=== PATIENT | female | born 1980 | race Caucasian/White ===

== ENCOUNTER 2016-08-26 16:02 | Emergency (ER) | payer OTHER, BC ==
--- NOTE | 2016-08-26 17:05 | ED CLINICAL REPORT ---
Clinical Report - Physicians/Mid Levels [facility] [address] [place] [address] 08/26/2016 16:03 Patient: JS DAHL Time Seen: 16:20; initial patient contact. Arrived- By private vehicle. Historian- patient. HISTORY OF PRESENT ILLNESS Chief Complaint: VAGINAL DISCHARGE. (( Pt was diagnosed with a yeast infection 4 days ago. She was treated with an antifungal, but states she is in pain.)). Still present and worsening. The symptoms are described as severe. The patient has had vaginal pain. She has had a single painful genital lesion (1 days). She has had pain with urination. No urinary frequency, urgency of urination or hematuria. Sexually active. control measures utilized. Similar symptoms previously: None. Recent medical care: The patient was seen recently at another facility in a clinic. REVIEW OF SYSTEMS No nausea or vomiting. All systems otherwise negative, except as recorded above. PAST HISTORY See nurses notes. Problems: Hemorrhoids. Dental Pain. Medications: Ibuprofen Oral. Allergies: No Known Drug Allergy. SOCIAL HISTORY No alcohol use or drug use. FAMILY HISTORY Negative. ADDITIONAL NOTES The nursing notes have been reviewed with agreement regarding the chief complaint, HPI, ROS, PMH and patient medications and allergies. PHYSICAL EXAM Vital Signs: 08/26/2016 16:23 BP: 120/80. HR: 94. RR: 18. O2 saturation: 98%. Temp: 98.6 F. Pain level now: 7/10. Have been reviewed. Appearance: Alert. Oriented X3. No acute distress. Abdomen: Soft and nontender. Bowel sounds normal. : A few severely tender herpes-like lesions (ulcerations, with an erythematous base) present in the periurethral area. PROGRESS AND PROCEDURES Course of Care: Patient is stable. CLINICAL IMPRESSION Acute moderate herpes vulvovaginitis. Herpes genitalis involving the vulva. INSTRUCTIONS Rest. Do not work for three days until better. No sexual contact until symptoms resolve. Warnings: Further evaluation is necessary in order to obtain test results. It is very important to follow up with a physician. GENERAL WARNINGS: Return or contact your physician immediately if your condition worsens or changes unexpectedly, if not improving as expected, or if other problems arise. Prescription Medications: Hydrocodone/APAP 5mg / 325mg: take 1 orally every 8 hours as needed for pain. Dispense ten (10). No refill. Valtrex 1000 mg: every 8 hours for 7 days. No refills. Substitution is permissible. Follow-up: Go to your doctor for results of cultures. If unable to obtain follow-up, call the emergency department. Understanding of the discharge instructions verbalized by patient. (Electronically signed by Ambreen Engel PA-C 08/27/2016 0:11)
--- NOTE | 2016-08-26 17:05 | ED NURSING NOTES ---
Clinical Report - Nurses [facility] [place] [address] 08/26/2016 16:03 Patient: JS DAHL TRIAGE Acuity: LEVEL 4. Chief Complaint: VAGINAL PAIN. Alert. No acute distress. --16:27 Rahda Ramos R.N. 16:23 08/26/16. BP: 120/80. HR: 94. RR: 18. O2 saturation: 98% on room air. Temp: 98.6 F (oral). Pain level now: 01/07. --16:27 Radha Ramos R.N. Weight: 77.1 kg stated. Height/Length: 66 inches Per Patient. BMI: 27.4. --16:27 Radha Ramos R.N. Medications Ibuprofen Oral. --16:25 Radha Ramos R.N. Medication/allergy information source: the patient. --16:27 Radha Ramos R.N. Allergies No Known Drug Allergy. --16:25 Radha Ramos R.N. History Arrived by private vehicle. Historian: patient. Unaccompanied. Onset. (4 days ago). ( Pt was diagnosed with a yeast infection 4 days ago. She was treated with an antifungal, but states she is in pain.). 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 PAST MEDICAL HX: Last normal menstrual period- does not have periods. Uses an intrauterine device. SOCIAL HX: Current some days light tobacco smoker. No alcohol use or drug use. FALL RISK ASSESSMENT: Fall risk assessment completed. No fall risk identified. NUTRITIONAL RISK ASSESSMENT: The nutritional risk assessment revealed no deficiencies. FUNCTIONAL ASSESSMENT: Functional assessment: no impairments noted. LEARNING NEEDS ASSESSMENT: The learning needs assessment revealed no barriers. SKIN INTEGRITY ASSESSMENT: Skin integrity risk assessment completed. No skin integrity risk identified. --16:27 Radha Ramos R.N. Interventions ID band on patient. To treatment room. --16:27 Radha Ramos R.N. PHYSICAL ASSESSMENT 16:28 08/26/16. Ambulatory to room. GENERAL / NEURO / PSYCH: Alert. Oriented X 4. Appears in no acute distress. HEENT: Mucous membranes are pink. RESPIRATORY: Respirations not labored. CVS: Capillary refill less than 2 seconds. GI / : Abdomen soft and nontender. SKIN: Skin is warm and dry. --16:28 Radha Ramos R.N. NURSING PROGRESS NOTES 16:28 08/26/16. Patient gowned. Reassurance given. Two patient identifiers checked. Call light placed in reach. Side rails up x 1. Bed placed in lowest position. Brakes of bed on. Patient ready for evaluation- chart flagged and PA notified. --16:28 Radha Ramos R.N. 16:59 08/26/16. Checked patient name and birthdate: patient confirmed. Instructions provided to collect clean catch urine and patient verbalized understanding. Clean catch urine collected with return of yellow-colored clear urine; sample sent to lab for urinalysis. Specimen labeled in the presence of the patient. --16:59 Radha Ramos R.N. DISPOSITION / DISCHARGE 17:25 08/26/16. Departure time: 1724. Condition at departure: improved and stable. No learning barriers present. Discharge instructions provided and reviewed with the patient. Reviewed medication(s) side effects, precautions, dosing and course information. Prescription(s) given to the patient. Work note given. Patient verbalized understanding. Written instructions provided in Ivorian. The patient was discharged by the physician travel assistant. She was discharged home. She left the Emergency Department ambulatory and via private vehicle. Patient driving. --17:26 Kandi Mccray R.N. Locked/Released at 08/27/2016 13:16 by Kandi Mccray R.N.
--- NOTE | 2016-08-26 17:05 | ED ORDER SUMMARY ---
..... Patient: JS DAHL OrderSheet [facility] VisitID: [id number] [address] [place] [address] 35y, F Registration Date/Time: 08/26/2016 ORDER SHEET Weight: 77.1 kg (stated) Allergies: No Known Drug Allergy GENERAL ORDERS: UA-Culture if indicated Urgent (16:33 08/26/2016 Huey FONTANA) (Ack 16:34 LTapper) (16:58 MWinterer R.N.) Culture, Genital (Urethra) Urgent (17:05 08/26/2016 Huey FONTANA) (17:10 KWilliams R.N.) Culture, Herpes (Urethra) (herpes left of urethra) Urgent (17:06 08/26/2016 Huey FONTANA) (17:10 KWilliams R.N.) MEDICATION ORDERS: IV FLUIDS: ORDER SHEET NOTES: [Electronically signed by Ambreen Engel PA-C (00:11 08/27/2016)] [Electronically signed by Kandi Mccray R.N. (13:16 08/27/2016)] [Electronically locked/signed by Kandi Mccray R.N. (13:16 08/27/2016)]
--- NOTE | 2016-08-26 17:05 | ED ORDER SUMMARY ---
..... Patient: JS DAHL OrderSheet [facility] VisitID: [id number] [address] [place] [address] 35y, F Registration Date/Time: 08/26/2016 ORDER SHEET Weight: 77.1 kg (stated) Allergies: No Known Drug Allergy GENERAL ORDERS: UA-Culture if indicated Urgent (16:33 08/26/2016 Huye FONTANA) (Ack 16:34 LTapper) (16:58 MWinterer R.N.) Culture, Genital (Urethra) Urgent (17:05 08/26/2016 Huey FONTANA) (17:10 KWilliams R.N.) Culture, Herpes (Urethra) (herpes left of urethra) Urgent (17:06 08/26/2016 Huey FONTANA) (17:10 KWilliams R.N.) MEDICATION ORDERS: IV FLUIDS: ORDER SHEET NOTES: [Electronically signed by Ambreen Engel PA-C (00:11 08/27/2016)] [Electronically signed by Kandi Mccray R.N. (13:16 08/27/2016)] [Electronically locked/signed by Kandi Mccray R.N. (13:16 08/27/2016)]
--- NOTE | 2016-08-26 17:05 | ED NURSING NOTES ---
Clinical Report - Nurses [facility] [place] [address] 08/26/2016 16:03 Patient: JS DAHL TRIAGE Acuity: LEVEL 4. Chief Complaint: VAGINAL PAIN. Alert. No acute distress. --16:27 Radha Ramos R.N. 16:23 08/26/16. BP: 120/80. HR: 94. RR: 18. O2 saturation: 98% on room air. Temp: 98.6 F (oral). Pain level now: 01/07. --16:27 Radha Ramos R.N. Weight: 77.1 kg stated. Height/Length: 66 inches Per Patient. BMI: 27.4. --16:27 Radha Ramos R.N. Medications Ibuprofen Oral. --16:25 Radha Ramos R.N. Medication/allergy information source: the patient. --16:27 Radha Ramos R.N. Allergies No Known Drug Allergy. --16:25 Radha Ramos R.N. History Arrived by private vehicle. Historian: patient. Unaccompanied. Onset. (4 days ago). ( Pt was diagnosed with a yeast infection 4 days ago. She was treated with an antifungal, but states she is in pain.). 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 PAST MEDICAL HX: Last normal menstrual period- does not have periods. Uses an intrauterine device. SOCIAL HX: Current some days light tobacco smoker. No alcohol use or drug use. FALL RISK ASSESSMENT: Fall risk assessment completed. No fall risk identified. NUTRITIONAL RISK ASSESSMENT: The nutritional risk assessment revealed no deficiencies. FUNCTIONAL ASSESSMENT: Functional assessment: no impairments noted. LEARNING NEEDS ASSESSMENT: The learning needs assessment revealed no barriers. SKIN INTEGRITY ASSESSMENT: Skin integrity risk assessment completed. No skin integrity risk identified. --16:27 Radha Ramos R.N. Interventions ID band on patient. To treatment room. --16:27 Radha Ramos R.N. PHYSICAL ASSESSMENT 16:28 08/26/16. Ambulatory to room. GENERAL / NEURO / PSYCH: Alert. Oriented X 4. Appears in no acute distress. HEENT: Mucous membranes are pink. RESPIRATORY: Respirations not labored. CVS: Capillary refill less than 2 seconds. GI / : Abdomen soft and nontender. SKIN: Skin is warm and dry. --16:28 Radha Ramos R.N. NURSING PROGRESS NOTES 16:28 08/26/16. Patient gowned. Reassurance given. Two patient identifiers checked. Call light placed in reach. Side rails up x 1. Bed placed in lowest position. Brakes of bed on. Patient ready for evaluation- chart flagged and PA notified. --16:28 Radha Ramos R.N. 16:59 08/26/16. Checked patient name and birthdate: patient confirmed. Instructions provided to collect clean catch urine and patient verbalized understanding. Clean catch urine collected with return of yellow-colored clear urine; sample sent to lab for urinalysis. Specimen labeled in the presence of the patient. --16:59 Radha Ramos R.N. DISPOSITION / DISCHARGE 17:25 08/26/16. Departure time: 1724. Condition at departure: improved and stable. No learning barriers present. Discharge instructions provided and reviewed with the patient. Reviewed medication(s) side effects, precautions, dosing and course information. Prescription(s) given to the patient. Work note given. Patient verbalized understanding. Written instructions provided in Czech. The patient was discharged by the physician assistant food service manager. She was discharged home. She left the Emergency Department ambulatory and via private vehicle. Patient driving. --17:26 Kandi Mccray R.N. Locked/Released at 08/27/2016 13:16 by Kandi Mccray R.N.
--- NOTE | 2016-08-26 17:05 | ED CLINICAL REPORT ---
Clinical Report - Physicians/Mid Levels [facility] [address] [place] [address] 08/26/2016 16:03 Patient: JS DAHL Time Seen: 16:20; initial patient contact. Arrived- By private vehicle. Historian- patient. HISTORY OF PRESENT ILLNESS Chief Complaint: VAGINAL DISCHARGE. (( Pt was diagnosed with a yeast infection 4 days ago. She was treated with an antifungal, but states she is in pain.)). Still present and worsening. The symptoms are described as severe. The patient has had vaginal pain. She has had a single painful genital lesion (1 days). She has had pain with urination. No urinary frequency, urgency of urination or hematuria. Sexually active. control measures utilized. Similar symptoms previously: None. Recent medical care: The patient was seen recently at another facility in a clinic. REVIEW OF SYSTEMS No nausea or vomiting. All systems otherwise negative, except as recorded above. PAST HISTORY See nurses notes. Problems: Hemorrhoids. Dental Pain. Medications: Ibuprofen Oral. Allergies: No Known Drug Allergy. SOCIAL HISTORY No alcohol use or drug use. FAMILY HISTORY Negative. ADDITIONAL NOTES The nursing notes have been reviewed with agreement regarding the chief complaint, HPI, ROS, PMH and patient medications and allergies. PHYSICAL EXAM Vital Signs: 08/26/2016 16:23 BP: 120/80. HR: 94. RR: 18. O2 saturation: 98%. Temp: 98.6 F. Pain level now: 7/10. Have been reviewed. Appearance: Alert. Oriented X3. No acute distress. Abdomen: Soft and nontender. Bowel sounds normal. : A few severely tender herpes-like lesions (ulcerations, with an erythematous base) present in the periurethral area. PROGRESS AND PROCEDURES Course of Care: Patient is stable. CLINICAL IMPRESSION Acute moderate herpes vulvovaginitis. Herpes genitalis involving the vulva. INSTRUCTIONS Rest. Do not work for three days until better. No sexual contact until symptoms resolve. Warnings: Further evaluation is necessary in order to obtain test results. It is very important to follow up with a physician. GENERAL WARNINGS: Return or contact your physician immediately if your condition worsens or changes unexpectedly, if not improving as expected, or if other problems arise. Prescription Medications: Hydrocodone/APAP 5mg / 325mg: take 1 orally every 8 hours as needed for pain. Dispense ten (10). No refill. Valtrex 1000 mg: every 8 hours for 7 days. No refills. Substitution is permissible. Follow-up: Go to your doctor for results of cultures. If unable to obtain follow-up, call the emergency department. Understanding of the discharge instructions verbalized by patient. (Electronically signed by Ambreen Engel PA-C 08/27/2016 0:11)
--- NOTE | 2016-08-27 13:16 | ED MED RECONCILIATION SUMMARY ---
Patient: JS DAHL Medication Reconciliation Report [facility] VisitID: [id number] [address] [place] [address] 35y, F Registration Date/Time: 08/26/2016 Weight: 77.1 kg Height/Length: 66 in. BMI: 27.4 ALLERGIES: No Known Drug Allergy The patient's Home Medications are listed below: THE FOLLOWING MEDICATIONS NEED TO BE RECONCILED: Ibuprofen Oral The source(s) of the original Home Medication information: patient The following Medications were given to the patient in the Emergency Department: None. The following Medications were prescribed to the patient: Hydrocodone/APAP 5mg / 325mg: take 1 orally every 8 hours as needed for pain. Dispense ten (10). No refill. -- Ambreen Engel PA-C Valtrex 1000 mg: every 8 hours for 7 days. No refills. Substitution is permissible. -- Ambreen Engel PA-C
--- NOTE | 2016-08-27 13:16 | ED MAR SUMMARY ---
..... Medication Administration Record [facility] [address] [place], [place] [id number] Patient: JS DAHL Visit ID: [id number] 35y, F Weight: 77.1 kg Height/Length: 66 in BMI: 27.4 ALLERGIES: No Known Drug Allergy
--- NOTE | 2016-08-27 13:16 | ED MAR SUMMARY ---
..... Medication Administration Record [facility] [address] [place], [place] [id number] Patient: JS DAHL Visit ID: [id number] 35y, F Weight: 77.1 kg Height/Length: 66 in BMI: 27.4 ALLERGIES: No Known Drug Allergy
--- NOTE | 2016-08-27 13:16 | ED MED RECONCILIATION SUMMARY ---
Patient: JS DAHL Medication Reconciliation Report [facility] VisitID: [id number] [address] [place] [address] 35y, F Registration Date/Time: 08/26/2016 Weight: 77.1 kg Height/Length: 66 in. BMI: 27.4 ALLERGIES: No Known Drug Allergy The patient's Home Medications are listed below: THE FOLLOWING MEDICATIONS NEED TO BE RECONCILED: Ibuprofen Oral The source(s) of the original Home Medication information: patient The following Medications were given to the patient in the Emergency Department: None. The following Medications were prescribed to the patient: Hydrocodone/APAP 5mg / 325mg: take 1 orally every 8 hours as needed for pain. Dispense ten (10). No refill. -- Ambreen Engel PA-C Valtrex 1000 mg: every 8 hours for 7 days. No refills. Substitution is permissible. -- Ambreen Engel PA-C
--- NOTE | 2016-08-27 13:16 | ED DISCHARGE INSTRUCTIONS ---
Patient: JS DAHL General Instructions [facility] VisitID: [id number] [place] [address] 35y, F Registration Date/Time: 08/26/2016 Acute moderate herpes vulvovaginitis. Herpes genitalis involving the vulva. INSTRUCTIONS Rest. Do not work for three days until better. No sexual contact until symptoms resolve. Warnings: Further evaluation is necessary in order to obtain test results. It is very important to follow up with a physician. GENERAL WARNINGS: Return or contact your physician immediately if your condition worsens or changes unexpectedly, if not improving as expected, or if other problems arise. Prescription Medications: Hydrocodone/APAP 5mg / 325mg: take 1 orally every 8 hours as needed for pain. Dispense ten (10). No refill. Valtrex 1000 mg: every 8 hours for 7 days. No refills. Substitution is permissible. Follow-up: Go to your doctor for results of cultures. If unable to obtain follow-up, call the emergency department. Understanding of the discharge instructions verbalized by patient. ADDITIONAL INFORMATION Genital Herpes Genital herpes is a common sexually transmitted disease (STD). It is caused by the Herpes Simplex virus. One out of five (20%) teens and adults carry the herpes virus. During an outbreak, it causes small blisters that break open, leaving small painful ulcers (sores) in the genital area. Eventually, scabs form and the ulcers heal. In women, these are most often on the skin just outside the vaginal opening. They can occur on the buttocks, anus or cervix. In men, the sores are usually on the tip, sides or base of the penis. They also occur on the scrotum, buttocks or thighs. The first episode begins within 2-3 weeks after exposure to an infected sexual partner. It may last 1-3 weeks and cause headache, muscle ache and fevers. The first outbreak is usually the worst. Because the virus remains in the body even after the sores heal, most persons will have recurrences. The frequency of recurrent outbreaks varies with each person. Some people will never have another outbreak. Others will have several episodes a year. Later outbreaks are usually shorter, milder and less painful. For many, the number of outbreaks tends to decrease over time. Various factors may trigger a recurrence. These include: Emotional stress Menstruation Presence of another illness (cold, flu, or fever from any cause) Overexertion and fatigue Weakened immune system Home Care: It is very important that you do not have sexual relations until ALL the herpes sores have healed completely. Wash the affected area gently with mild soap and water. Wash your hands after touching the affected area. You may use acetaminophen (Tylenol) or ibuprofen (Motrin, Advil) to control pain, unless another pain medicine was prescribed. [NOTE: If you have chronic liver or kidney disease or ever had a stomach ulcer or GI bleeding, talk with your doctor before using these medicines.] Your doctor may prescribe anti-viral medicine during the first outbreak. This will help the sores heal faster. Antiviral medicine may also be prescribed to have at home to take at the first sign of a recurrence. This will shorten the symptoms of a recurrence. For persons with frequent outbreaks, daily therapy may be prescribed. This will reduce the frequency of attacks. Daily therapy may also reduce risk of spread of herpes to your sexual partner. Discuss the risks and benefits of daily therapy with your doctor. If you are a woman who is now or become in the future, let your doctor know that you have had herpes since this may affect the method of delivery. Preventing Spread To Others: The virus is spread by sexual contact with someone who has the herpes virus. The risk of spread is highest when the sores are present. However, there is a chance of spreading the virus even when sores are not visible . Inform future sexual partners that you have herpes and that he/she may become infected. To reduce the risk of passing the virus to a partner who has never had herpes, avoid sexual relations at the first sign of an outbreak and until the ulcers are fully healed. Latex condoms reduce the risk of spread between outbreaks if the infected site is covered, but they do not guarantee protection. Follow-Up: Persons who have just learned that they have herpes may feel guilt, anger, and be emotionally upset. Getting the facts helps put you back in control. Follow up with your doctor or the Public Health Dept for complete STD screening, including HIV testing. For more information about Herpes, see the "National Herpes Resource Center" http://www.ashastd.org/herpes/herpes_overview.cfm ; or call the National STD Hotline: 276.986.1185. Get Prompt Medical Attention if any of the following occur: Inability to urinate due to pain Swelling or increasing redness in the genital area Unusual drowsiness, weakness or confusion Headache, stiff neck Discharge from the vagina or penis Increasing back or abdominal pain Rash or joint pain Valacyclovir Hydrochloride Oral tablet What is this medicine? VALACYCLOVIR (keyona ay PTA foster veer) is an antiviral medicine. It is used to treat or prevent infections caused by certain kinds of viruses. Examples of these infections include herpes and shingles. This medicine will not cure herpes. How should I use this medicine? Take this medicine by mouth with a glass of water. Follow the directions on the prescription label. You can take this medicine with or without food. Take your doses at regular intervals. Do not take your medicine more often than directed. Finish the full course prescribed by your doctor or health foster care worker even if you think your condition is better. Do not stop taking except on the advice of your doctor or health foster care worker. Talk to your record center specialist regarding the use of this medicine in children. While this drug may be prescribed for children as young as 2 years for selected conditions, precautions do apply. What side effects may I notice from receiving this medicine? Side effects that you should report to your doctor or health foster care worker as soon as possible: allergic reactions like skin rash, itching or hives, swelling of the face, lips, or tongue aggressive behavior confusion hallucinations problems with balance, talking, walking stomach pain tremor trouble passing urine or change in the amount of urine Side effects that usually do not require medical attention (report to your doctor or health foster care worker if they continue or are bothersome): dizziness headache nausea, vomiting What may interact with this medicine? cimetidine probenecid What if I miss a dose? If you miss a dose, take it as soon as you can. If it is almost time for your next dose, take only that dose. Do not take double or extra doses. Where should I keep my medicine? Keep out of the reach of children. Store at room temperature between 15 and 25 degrees C (59 and 77 degrees F). Keep container tightly closed. Throw away any unused medicine after the expiration date. What should I tell my health care provider before I take this medicine? They need to know if you have any of these conditions: acquired immunodeficiency syndrome (AIDS) any other condition that may weaken the immune system bone marrow or kidney transplant kidney disease an unusual or allergic reaction to valacyclovir, acyclovir, ganciclovir, valganciclovir, other medicines, foods, dyes, or preservatives or trying to get breast-feeding What should I watch for while using this medicine? Tell your doctor or health foster care worker if your symptoms do not start to get better after 1 week. This medicine works best when taken early in the course of an infection, within the first 72 hours. Begin treatment as soon as possible after the first signs of infection like tingling, itching, or pain in the affected area. It is possible that genital herpes may still be spread even when you are not having symptoms. Always use safer sex practices like condoms made of latex or polyurethane whenever you have sexual contact. You should stay well hydrated while taking this medicine. Drink plenty of fluids. You have been given the following additional information: Herpes Genitalis, Hsv: Type Ii Valacyclovir Hydrochloride Oral tablet Rest. Do not work for three days until better. (Electronically signed by Ambreen Engel PA-C 08/27/2016 0:11)
--- NOTE | 2016-08-27 13:16 | ED DISCHARGE INSTRUCTIONS ---
Patient: JS DAHL General Instructions [facility] VisitID: [id number] [place] [address] 35y, F Registration Date/Time: 08/26/2016 Acute moderate herpes vulvovaginitis. Herpes genitalis involving the vulva. INSTRUCTIONS Rest. Do not work for three days until better. No sexual contact until symptoms resolve. Warnings: Further evaluation is necessary in order to obtain test results. It is very important to follow up with a physician. GENERAL WARNINGS: Return or contact your physician immediately if your condition worsens or changes unexpectedly, if not improving as expected, or if other problems arise. Prescription Medications: Hydrocodone/APAP 5mg / 325mg: take 1 orally every 8 hours as needed for pain. Dispense ten (10). No refill. Valtrex 1000 mg: every 8 hours for 7 days. No refills. Substitution is permissible. Follow-up: Go to your doctor for results of cultures. If unable to obtain follow-up, call the emergency department. Understanding of the discharge instructions verbalized by patient. ADDITIONAL INFORMATION Genital Herpes Genital herpes is a common sexually transmitted disease (STD). It is caused by the Herpes Simplex virus. One out of five (20%) teens and adults carry the herpes virus. During an outbreak, it causes small blisters that break open, leaving small painful ulcers (sores) in the genital area. Eventually, scabs form and the ulcers heal. In women, these are most often on the skin just outside the vaginal opening. They can occur on the buttocks, anus or cervix. In men, the sores are usually on the tip, sides or base of the penis. They also occur on the scrotum, buttocks or thighs. The first episode begins within 2-3 weeks after exposure to an infected sexual partner. It may last 1-3 weeks and cause headache, muscle ache and fevers. The first outbreak is usually the worst. Because the virus remains in the body even after the sores heal, most persons will have recurrences. The frequency of recurrent outbreaks varies with each person. Some people will never have another outbreak. Others will have several episodes a year. Later outbreaks are usually shorter, milder and less painful. For many, the number of outbreaks tends to decrease over time. Various factors may trigger a recurrence. These include: Emotional stress Menstruation Presence of another illness (cold, flu, or fever from any cause) Overexertion and fatigue Weakened immune system Home Care: It is very important that you do not have sexual relations until ALL the herpes sores have healed completely. Wash the affected area gently with mild soap and water. Wash your hands after touching the affected area. You may use acetaminophen (Tylenol) or ibuprofen (Motrin, Advil) to control pain, unless another pain medicine was prescribed. [NOTE: If you have chronic liver or kidney disease or ever had a stomach ulcer or GI bleeding, talk with your doctor before using these medicines.] Your doctor may prescribe anti-viral medicine during the first outbreak. This will help the sores heal faster. Antiviral medicine may also be prescribed to have at home to take at the first sign of a recurrence. This will shorten the symptoms of a recurrence. For persons with frequent outbreaks, daily therapy may be prescribed. This will reduce the frequency of attacks. Daily therapy may also reduce risk of spread of herpes to your sexual partner. Discuss the risks and benefits of daily therapy with your doctor. If you are a woman who is now or become in the future, let your doctor know that you have had herpes since this may affect the method of delivery. Preventing Spread To Others: The virus is spread by sexual contact with someone who has the herpes virus. The risk of spread is highest when the sores are present. However, there is a chance of spreading the virus even when sores are not visible . Inform future sexual partners that you have herpes and that he/she may become infected. To reduce the risk of passing the virus to a partner who has never had herpes, avoid sexual relations at the first sign of an outbreak and until the ulcers are fully healed. Latex condoms reduce the risk of spread between outbreaks if the infected site is covered, but they do not guarantee protection. Follow-Up: Persons who have just learned that they have herpes may feel guilt, anger, and be emotionally upset. Getting the facts helps put you back in control. Follow up with your doctor or the Public Health Dept for complete STD screening, including HIV testing. For more information about Herpes, see the "National Herpes Resource Center" http://www.ashastd.org/herpes/herpes_overview.cfm ; or call the National STD Hotline: 935.704.3686. Get Prompt Medical Attention if any of the following occur: Inability to urinate due to pain Swelling or increasing redness in the genital area Unusual drowsiness, weakness or confusion Headache, stiff neck Discharge from the vagina or penis Increasing back or abdominal pain Rash or joint pain Valacyclovir Hydrochloride Oral tablet What is this medicine? VALACYCLOVIR (keyona ay PAT foster veer) is an antiviral medicine. It is used to treat or prevent infections caused by certain kinds of viruses. Examples of these infections include herpes and shingles. This medicine will not cure herpes. How should I use this medicine? Take this medicine by mouth with a glass of water. Follow the directions on the prescription label. You can take this medicine with or without food. Take your doses at regular intervals. Do not take your medicine more often than directed. Finish the full course prescribed by your doctor or health career orientation teacher even if you think your condition is better. Do not stop taking except on the advice of your doctor or health career orientation teacher. Talk to your coding technician regarding the use of this medicine in children. While this drug may be prescribed for children as young as 2 years for selected conditions, precautions do apply. What side effects may I notice from receiving this medicine? Side effects that you should report to your doctor or health career orientation teacher as soon as possible: allergic reactions like skin rash, itching or hives, swelling of the face, lips, or tongue aggressive behavior confusion hallucinations problems with balance, talking, walking stomach pain tremor trouble passing urine or change in the amount of urine Side effects that usually do not require medical attention (report to your doctor or health career orientation teacher if they continue or are bothersome): dizziness headache nausea, vomiting What may interact with this medicine? cimetidine probenecid What if I miss a dose? If you miss a dose, take it as soon as you can. If it is almost time for your next dose, take only that dose. Do not take double or extra doses. Where should I keep my medicine? Keep out of the reach of children. Store at room temperature between 15 and 25 degrees C (59 and 77 degrees F). Keep container tightly closed. Throw away any unused medicine after the expiration date. What should I tell my health care provider before I take this medicine? They need to know if you have any of these conditions: acquired immunodeficiency syndrome (AIDS) any other condition that may weaken the immune system bone marrow or kidney transplant kidney disease an unusual or allergic reaction to valacyclovir, acyclovir, ganciclovir, valganciclovir, other medicines, foods, dyes, or preservatives or trying to get breast-feeding What should I watch for while using this medicine? Tell your doctor or health career orientation teacher if your symptoms do not start to get better after 1 week. This medicine works best when taken early in the course of an infection, within the first 72 hours. Begin treatment as soon as possible after the first signs of infection like tingling, itching, or pain in the affected area. It is possible that genital herpes may still be spread even when you are not having symptoms. Always use safer sex practices like condoms made of latex or polyurethane whenever you have sexual contact. You should stay well hydrated while taking this medicine. Drink plenty of fluids. You have been given the following additional information: Herpes Genitalis, Hsv: Type Ii Valacyclovir Hydrochloride Oral tablet Rest. Do not work for three days until better. (Electronically signed by Ambreen Engel PA-C 08/27/2016 0:11)
== END 2016-08-26 17:24 | disposition home or self-care (01) ==
LOC: ED SRH 16:02
DX: A60.04 Herpesviral vulvovaginitis (principal); Z79.1 Long term (current) use of non-steroidal anti-inflammatories (NSAID)
CPT/HCPCS: 90004

== ENCOUNTER 2016-11-13 18:13 | Emergency (ER) | payer OTHER ==
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
--- NOTE | 2016-11-13 22:13 | ED MAR SUMMARY ---
..... Medication Administration Record [facility] [address] [place], [place] [id number] Patient: JS DAHL Visit ID: [id number], F Weight: 77.1 kg Height/Length: 65 in BMI: 28.3 ALLERGIES: No Known Drug Allergy
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
--- NOTE | 2016-11-13 22:13 | ED MAR SUMMARY ---
..... Medication Administration Record [facility] [address], [place] [id number] Patient: JS DAHL Visit ID: [id number] 36y, F Weight: 77.1 kg Height/Length: 65 in BMI: 28.3 ALLERGIES: No Known Drug Allergy
--- NOTE | 2016-11-13 22:13 | ED MED RECONCILIATION SUMMARY ---
Patient: JS DAHL Medication Reconciliation Report [facility] VisitID: [id number] [address] [place] [address] 36y, F Registration Date/Time: 11/13/2016 Weight: 77.1 kg Height/Length: 65 in. BMI: 28.3 ALLERGIES: No Known Drug Allergy The patient's Home Medications are listed below: NONE. The source(s) of the original Home Medication information: patient The following Medications were given to the patient in the Emergency Department: None. The following Medications were prescribed to the patient: Flexeril 10 mg: Take 1 orally every 8 hours as needed for muscle spasm. Dispense twenty (20). No refills. Substitution is permissible. -- Emilie Arteaga, Tha.R.N.P. Ultram 50 mg tablets: take 1-2 orally every 6 hours as needed for pain. Dispense twenty (20). No refills. Substitution is permissible. -- Emilie Arteaga A.R.N.P.
--- NOTE | 2016-11-13 22:13 | ED MED RECONCILIATION SUMMARY ---
Patient: JS DAHL Medication Reconciliation Report [facility] VisitID: [id number] [address] [place] [address] 36y, F Registration Date/Time: 11/13/2016 Weight: 77.1 kg Height/Length: 65 in. BMI: 28.3 ALLERGIES: No Known Drug Allergy The patient's Home Medications are listed below: NONE. The source(s) of the original Home Medication information: patient The following Medications were given to the patient in the Emergency Department: None. The following Medications were prescribed to the patient: Flexeril 10 mg: Take 1 orally every 8 hours as needed for muscle spasm. Dispense twenty (20). No refills. Substitution is permissible. -- Emilie Arteaga, Tha.R.N.P. Ultram 50 mg tablets: take 1-2 orally every 6 hours as needed for pain. Dispense twenty (20). No refills. Substitution is permissible. -- Emilie Arteaga A.R.N.P.
== END 2016-11-13 19:23 | disposition home or self-care (01) ==
LOC: ED SRH 18:13
DX: S16.1XXA Strain of muscle, fascia and tendon at neck level, initial encounter (principal); V43.52XA Car driver injured in collision with other type car in traffic accident, initial encounter; Y93.89 Activity, other specified; Y99.8 Other external cause status; Y92.410 Unspecified street and highway as the place of occurrence of the external cause